=== PATIENT | male | born 1975 | race Caucasian/White ===

== ENCOUNTER 2018-06-11 06:48 | Day surgery (SDC) | payer OTHER ==
[~2018-06-11 06:48] MED LIST: ACETAMINOPHEN 1,000 MG/100 ML BTL IV ONE; CLINDAMYCIN PHOS/D5W 900MG 900 MG/50 ML BAG IVPB ONE
[2018-06-11] MEDS ORDERED: GLYCOPYRROLATE 0.2 MG/ML ML IV ONE (06:49)
[2018-06-11] MEDS ORDERED: BUPIVACAINE LIPOSOME/PF 133MG/10ML VIAL IV ONE (06:49)
[2018-06-11] MEDS ORDERED: BUPIVACAINE 0.5% W/EPI MPF 30 ML VIAL IVP ONE (06:49)
[2018-06-11] MEDS ORDERED: HYDROCODONE/APAP 7.5/325MG TABLET PO ONE (06:49)
[2018-06-11] MEDS ORDERED: TRANEXAMIC ACID 1,000 MG/10 ML ML IV ONE (06:49)
[2018-06-11] MEDS ORDERED: KETOROLAC 60 MG/2 ML VIAL IM ONE (06:49)
[2018-06-11] MEDS ORDERED: **ER** KETAMINE HCL 500MG/10ML VIAL IV ONE (06:49)
[2018-06-11] MEDS ORDERED: BUPIVACAINE 0.5% (5MG/ML) PF 30ML VIAL IVP ONE (06:49)
[2018-06-11] MEDS ORDERED: DEXAMETHASONE 4 MG/ML 1ML VIAL IVP ONE (06:49)
[2018-06-11] MEDS ORDERED: MIDAZOLAM HCL 2MG/2ML VIAL IV ONE (06:49)
--- NOTE | 2018-06-14 11:49 | Operative Note ---
DATE: 06/11/2018. PREOPERATIVE DIAGNOSIS: TEAR OF THE ROTATOR CUFF ON THE RIGHT WITH IMPINGEMENT. POSTOPERATIVE DIAGNOSES: 1. A LARGE TEAR OF THE ROTATOR CUFF ON THE RIGHT. 2. LARGE, UNSTABLE OS ACROMIALE. 3. PROFOUND EXTERNAL IMPINGEMENT. 4. ARTHROSIS, RIGHT DISTAL CLAVICLE. 5. DIFFUSE SYNOVITIS OF THE SHOULDER. 6. RUPTURED LONG HEAD OF THE BICEPS TENDON WITH UNSTABLE STUMP. PROCEDURES: 1. REPAIR OF A CHRONICALLY TORN RIGHT ROTATOR CUFF TEAR. 2. RIGHT SHOULDER ARTHROSCOPY WITH INTRA-ARTICULAR DEBRIDEMENT. 3. OPEN REDUCTION INTERNAL FIXATION OF THE RIGHT ACROMION. 4. RIGHT SHOULDER OPEN ACROMIOPLASTY, CORACOACROMIAL LIGAMENT RESECTION, AND SUBACROMIAL BURSECTOMY. 5. RIGHT SHOULDER DISTAL CLAVICLE RESECTION. STAFF SURGEON: Thomas Flores M.D. ANESTHESIA: General. PREPARATION: ChloraPrep. INDIVIDUAL CONSIDERATIONS: None. DESCRIPTION OF PROCEDURE: The patient was taken to the operating room and placed supine on the operating table. He had the successful induction of a general anesthetic. He was then placed in a semi-seated beach chair position, and his right arm and shoulder were prepped and draped in the usual fashion. Examination under anesthesia showed no instability and good motion. The patient had a posterior portal identified for arthroscopy. The skin had been infiltrated with 0.5% Marcaine with epinephrine prior. An 18-gauge spinal needle was placed in the joint, and the joint was inflated with normal saline with a 60 mL syringe. A stab wound was made, a blunt-tipped trocar for the scope was placed inside the joint, and the joint was inflated with normal saline. The patient had an absent long head of the stump. There was an anterior accessory portal then made using a Wissinger avinash in retrograde fashion and again infiltrating the anterior skin. The joint was then irrigated out. He had an obvious tear of the rotator cuff. He had an intact subscapularis, diffuse synovitis with an obvious large tear of the supraspinatus, and fraying of the long head stump. This was all debrided as was the anterior labrum. The posterior labrum and glenohumeral joint were intact. No loose bodies were seen inferiorly except for synovitis which was debrided. After irrigation, the portals were closed with mj. The patient had an anterior approach to the subacromial space and distal clavicle. The skin had been infiltrated with 0.5% Marcaine with epinephrine prior. Sharp dissection was carried down through the skin and subcutaneous tissue. Small veins were coagulated with a Bovie. Once on top of the acromion, he had an obvious, rather large os acromiale measuring almost 3.0 x 3.0 cm. I then took down the os acromiale which went about 40% into the acromioclavicular joint. I then took the deltoid down laterally and peeled this back. He had an obvious large tear. The distal clavicle was highly arthritic. I took an oscillating saw and removed about 1.0 cm. There were spurs in the acromion, and I went ahead and burred these off of both sides of the acromion. I then performed a complete bursectomy. The patient had a very large tear of the rotator cuff involving pretty much all of the supraspinatus and infraspinatus. I was able to mobilize it, and it looked like the os acromiale dug into it. However, it left a rotator cuff tag on the distal side, and so I did not have to really reattach it to the bone. I was able to freshen up both ends, bring it down, and repair the tendon with multiple buried knot #1 Ethibond sutures. I then freshened the nonunion side of the os acromiale to good bleeding bone. I placed two 1.6 mm guide pins to hold it, and then I was able to drill a single, #4-0 cancellous screw partially threaded for compression. The guide pins were threaded, and this gave excellent stable osseous synthesis. This was verified by direct vision. After irrigation, the deltoid longitudinal rents were closed with a running #1 Vicryl. The periosteal cuff of the distal clavicle was closed with a running # 2 Vicryl. Subcutaneous tissue was closed with #2-0+ Vicryl. The skin was closed with mj. The patient had about 15 mL of 0.5% Marcaine with about 10 mg of morphine injected into the subacromial space. A sterile Bulkee compressive dressing was applied. The patient tolerated the procedures well, and needle and sponge counts were correct. Estimated blood loss was 300 mL, and he was taken back Recovery in good condition. There were no complications. JOB NUMBER: [id number] [facility]
== END 2018-06-11 13:00 | disposition home or self-care (01) ==
LOC: SUR 06:48
PROVIDERS: ATTEND Orthopaedic Surgery
DX: M75.121 Complete rotator cuff tear or rupture of right shoulder, not specified as traumatic (principal); M65.811 Other synovitis and tenosynovitis, right shoulder; M19.011 Primary osteoarthritis, right shoulder; M75.41 Impingement syndrome of right shoulder; S46.111A Strain of muscle, fascia and tendon of long head of biceps, right arm, initial encounter
CPT/HCPCS: 76942; C9290; J1885; J3490